=== PATIENT | male | born 2000 | race Caucasian/White ===

== ENCOUNTER 2021-06-11 08:50 | Emergency (ER) | payer OTHER ==
[~2021-06-11] VITALS: Ht 172.7 cm; Wt 47.6 kg
--- NOTE | 2021-06-11 09:12 | NUR ---
novel swabbed at this time
[2021-06-11 09:17] VITALS: BP 107/60
[2021-06-11 10:12] VITALS: BP 112/72
--- NOTE | 2021-06-11 10:12 | NUR ---
Patient discharged with v/s stable. Written and verbal after care instructions given COVID 19 AND VIRAL ILLNESS and explained. Patient verbalized understanding. Ambulatory with steady gait. All questions addressed prior to discharge. Advised to follow up with PMD.
== END 2021-06-11 10:12 | disposition home or self-care (01) ==
LOC: MED 08:50
DX: U07.1 COVID-19 (principal)
CPT/HCPCS: 99283; U0003